=== PATIENT | female | born 1990 ===

== ENCOUNTER 2024-02-04 09:35 | Emergency (ER) | payer MEDICAID, SELFPAY ==
--- NOTE | ~2024-02-04 | US_ITS ---
EXAMINATION: US , LIMITED CLINICAL INFORMATION: 7 months with decreased movement COMPARISON: None available. TECHNIQUE: Limited study was performed to assess for heart rate and movement. measurements were not performed FINDINGS: A single fetus is present in a cephalic position. Normal heart rate of 152 bpm was noted. motion was detected. The placenta is located posteriorly and is of grade 2 and appears normal. Amniotic fluid volume is normal. US/US OB limited IMPRESSION: Live fetus with normal heart rate and movement seen. Electronically signed by: Jeronimo Lassiter MD 02/04/2024 12:55 PM EDT
[2024-02-04 09:47] VITALS: BP 118/82; PULSE 84; RESP 16; TEMP 36.6; O2SAT 99; BMI 23.9
[2024-02-04 10:00] LABS: MANUAL DIFF FLAG NO
[2024-02-04 10:03] LABS: Basophils Percent Auto 0.4 % (0-2); Eosinophils Percent Auto 0.1 % (0-4); Hematocrit 30.6 % (37.0-47.0); Hemoglobin 9.9 g/dl (12.0-16.0); Imm Gran Abs Auto 0.12 X10*3/uL (0.00-0.03); Imm Gran Pct Auto 1.5 % (0.0-0.4); Lymphocytes Absolute Auto 1.8 X10*3/uL (1.2-4.9); Lymphocytes Percent Auto 22.4 % (20-40); Mean Corpuscular HGB Conc 32.4 g/dl (31.0-35.0); Mean Corpuscular Hemoglobin 22.2 pg (27.0-33.0); Mean Corpuscular Volume 68.8 fL (80.0-98.0); Mean Platelet Volume 11.2 fL (9.4-12.3); Monocytes Absolute Auto 1.2 X10*3/uL (0.1-1.2); Monocytes Percent Auto 14.1 % (2-11); Neutrophils Absolute Auto 5.1 x10*3/uL (2.0-8.3); Neutrophils Percent Auto 61.5 % (45-73); Platelet Count 278 X10*3/uL (160-400); Red Blood Count 4.45 X10*6/uL (4.20-5.50); Red Cell Distribution Width 14.5 % (11.0-16.0); White Blood Count 8.2 X10*3/uL (4.8-10.8)
[2024-02-04 10:30] LABS: Alanine Aminotransferase 35 U/L (0-31); Albumin Level 3.3 g/dL (3.5-5.0); Alkaline Phosphatase 105 U/L (39-117); Anion Gap 12 (12-20); Aspartate Amino Transferase 36 U/L (5-31); Bilirubin Total 0.3 mg/dL (0.0-1.0); Blood Urea Nitrogen 7 mg/dL (9-16); Calcium 9.4 mg/dL (8.4-10.2); Carbon Dioxide 22 mmol/L (22-29); Chloride 108 mmol/L (96-108); Creatinine Clr Calc Pharmacy 107.9; Estimated Glomerular Filt Rate > 60; Glucose Random 70 mg/dL (60-115); Potassium 3.9 mmol/L (3.3-5.1); Sodium 138 mmol/L (135-145); Total Protein 6.7 g/dL (6.5-8.0)
[2024-02-04 10:53] LABS: HCG Quantitative 18643 mIU/mL
== END 2024-02-04 18:55 | disposition left against medical advice (07) ==
PROVIDERS: Emergency Medicine; Emergency Provider Emergency Medicine
DX: O26.92 Pregnancy related conditions, unspecified, second trimester (principal); Z3A.21 21 weeks gestation of pregnancy; R06.02 Shortness of breath
CPT/HCPCS: 36415; 76815; 80053; 84702; 85025; 99281